=== PATIENT | female | born 1955 | race Two or more races ===

== ENCOUNTER 2017-10-19 15:51 | Emergency (ER) | payer OTHER ==
[~2017-10-19] VITALS: Ht 165.1 cm; Wt 67.1 kg
[2017-10-19 15:55] VITALS: BP 171/87
--- NOTE | 2017-10-19 16:02 | NUR ---
Pt ambulated to bed 8.
--- NOTE | 2017-10-19 16:04 | NUR ---
Report given to Maira AGUILAR. Dr. Valdivia made aware of patient's condition.
--- NOTE | 2017-10-19 16:10 | NUR ---
62YO F TO ER FOR VAGINAL BLEEDING. vaginal bleeding x3 months; seeing a specialist and has order for urogram; US of pelvis and kidneys done yesterday; c/o dysuria and retention x3 days. hx HTN
[2017-10-19 17:20] LABS: BASOPHILS % (AUTO) 0.5 % (0.0-2.0); EOSINOPHILS # (AUTO) 0.2 K/uL (0-0.4); EOSINOPHILS % (AUTO) 2.9 % (0.0-4.0); HEMATOCRIT 34.6 % (36-48); HEMOGLOBIN 11.6 g/dL (12.0-16.0); LYMPHOCYTES # (AUTO) 2.1 K/uL (2.5-16.5); LYMPHOCYTES % (AUTO) 33.1 % (20.5-51.1); MEAN CORPUSCULAR HEMOGLOBIN 31 pg (27-31); MEAN CORPUSCULAR HGB CONC 34 g/dL (33-37); MEAN CORPUSCULAR VOLUME 92.3 fL (80-94); MONOCYTES # (AUTO) 0.4 K/uL (0.8-1.0); MONOCYTES % (AUTO) 6.6 % (1.7-9.3); NEUTROPHILS # (AUTO) 3.7 K/uL (1.8-7.7); NEUTROPHILS % (AUTO) 56.9 % (42.2-75.2); PLATELET COUNT (AUTO) 218 K/uL (140-450); RED BLOOD CELL COUNT(AUTO) 3.75 MIL/uL (4.20-5.40); RED CELL DISTRIBUTION WIDTH 12.5 % (11.6-13.7); WHITE BLOOD COUNT (AUTO) 6.5 K/uL (4.8-10.8)
[2017-10-19 17:22] LABS: APPEARANCE,URINE CLEAR (CLEAR); BILIRUBIN,URINE NEGATIVE (NEGATIVE); BLOOD, URINE 3+ (NEGATIVE); COLOR,URINE YELLOW (YELLOW); LEUKOCYTE ESTERASE ,URINE NEGATIVE (NEGATIVE); NITRITE, URINE NEGATIVE (NEGATIVE); PH,URINE 5.5 (5.0-9.0); UGLUCOSE NEGATIVE (NEGATIVE)
[2017-10-19 17:38] LABS: ANION GAP 9.5 (8-16); CARBON DIOXIDE 29.9 mmol/L (21-32); CREATININE 0.7 mg/dL (0.6-1.3); POTASSIUM 3.4 mmol/L (3.5-5.1)
[2017-10-19 17:42] LABS: PROTHROMBIN TIME 10.2 secs (10.8-13.4)
[2017-10-19 17:44] LABS: ALBUMIN 3.4 g/dL (3.4-5.0); TOTAL BILIRUBIN 0.3 mg/dL (0.0-1.0)
[2017-10-19 17:53] LABS: RBC,URINE 11-20 (MOD) /HPF (0-5); WBC,URINE 0-5 (RARE) /HPF (0-5)
--- NOTE | 2017-10-19 18:56 | NUR ---
ULTRASOUND AT BEDSIDE
--- NOTE | 2017-10-19 19:30 | NUR ---
PT AMBULATED EVEN STEADY GAIT TO BATHROOM.
--- NOTE | 2017-10-19 21:44 | NUR ---
Dr. Gonazlez evaluating patient at bedside.
[2017-10-19 22:36] VITALS: BP 116/78
--- NOTE | 2017-10-19 22:36 | NUR ---
Patient discharged with v/s stable. Written and verbal after care instructions given and explained. Patient alert, oriented and verbalized understanding of instructions. Ambulatory with steady gait. All questions addressed prior to discharge. ID band removed. Patient advised to follow up with PMD. Rx of ENTERIC COATED NAPROXEN given. Patient educated on indication of medication including possible reaction and side effects. Opportunity to ask questions provided and answered. Pt discharged without signing paperwork
== END 2017-10-19 22:36 | disposition home or self-care (01) ==
LOC: MED 15:51
DX: N92.0 Excessive and frequent menstruation with regular cycle (principal); R30.9 Painful micturition, unspecified; I10 Essential (primary) hypertension; Z88.6 Allergy status to analgesic agent
CPT/HCPCS: 36415; 76856; 80053; 81001; 85025; 85610; 85730; 99285; Q0092